=== PATIENT | male | born 1975 | race Caucasian/White ===

== ENCOUNTER → 2017-11-07 | Day surgery (SDC) | payer OTHER ==
[~2017-11-07] MED LIST: ACETAMINOPHEN 1000 MG/100 ML 100 ML IV ONE; ACETAMINOPHEN/HYDROcodone 325 MG/5 MG TAB ONE; KETOROLAC TROMETHAMINE 30 MG/ML (IVP) VIAL IV PUSH ONE; LACTATED RINGER'S 1000 ML INJ 1,000 ML ONE; MEPERIDINE HCL 50 MG/ML VIAL ONE; MIDAZOLAM HCL 2 MG/2 ML VIAL ONE; ONDANSETRON HCL 4 MG/2 ML VIAL IV PUSH ONE; PROPOFOL 200 MG/20 ML AMP IV ONE; ceFAZolin INJ 1,000 MG VIAL ONE
--- NOTE | 2017-11-07 10:29 | PD.PROCEDR ---
Procedure Note Procedure Operative report Preoperative diagnosis supraumbilical hernia Postoperative diagnosis same Procedure Open repair supraumbilical hernia with mesh Surgeon Diego Gardner MD [employer] Assembler Pamella ALEMAN Anesthesia General Indications for procedure This is a pleasant 42-year-old gentleman was at multiple previous hernia repairs. Developed a small supraumbilical hernia. Is symptomatic. He is desirous of operative repair. Intraoperative findings Small supraumbilical hernia with herniated preperitoneal fat. Estimated blood loss minimal. Description of procedure in detail Patient was identified as Art Rodriguez taken to the operating room and placed in a supine position. Sequential compression devices were placed on bilateral lower extremities. Following induction of adequate general anesthesia, patient' s abdomen was prepped and draped in usual sterile fashion with Betadine. A timeout procedure was performed. Following completion of timeout procedure everyone's satisfaction proposed elliptical incision including the previous infraumbilical scar was made with a marking pen. Local anesthetic was generously placed in and around the umbilicus and beneath the proposed incision site. The elliptical incision was carried out the scalpel and skin and scar was discarded. The umbilical skin was lifted off the herniated tissue in the supraumbilical position using combination of Metzenbaum scissors and blunt dissection. Herniated preperitoneal fat was reduced. The fascia was circumferentially cleared with electrocautery. Hernia defect was approximated with several interrupted inverted 0 Prolene sutures. Piece of mesh about 4 x 5 cm in size was placed in the onlay position and held in place with 6 separate 0 Ethibond sutures. Sutures were placed at the 3 and 9 o'clock position and 2:00 4:00 7:00 and 10:00 positions. This created a nice taut mesh to reinforce the primary repair. Irrigation ensued. There was no evidence of bleeding. The umbilicus was reformed with multiple interrupted 2-0 Vicryl sutures. Skin incisions were approximated for Monocryl subcuticular sutures. Dressings were applied with Mastisol half-inch brown Steri-Strips gauze and Tegaderm. An abdominal binder was placed. Patient tolerated the procedure without apparent complication. Sponge needle and instrument counts were correct at the end of the case. Diego Gardner MD Nov 07, 2017 10:29
--- NOTE | 2017-11-07 11:43 | PD.PROCEDR ---
Procedure Note Procedure This is an addendum to the operative report previously dictated today. This procedure was assisted by my nurse practitioner. The skill set of an HOME SERVICE CONSULTANT was medically necessary to provide increased safety and efficiency in the completion of the operative procedure. The instructor adjunct surgical technician was at the back table providing appropriate instrumentation while the nurse practitioner directly assisted me through the entirety of the procedure. End dictation Diego Gardner MD Nov 07, 2017 11:43
== END | disposition home or self-care (01) ==
LOC: ESDC 07:32
PROVIDERS: ATTEND Surgery Trauma Surgery
DX: K43.9 Ventral hernia without obstruction or gangrene (principal)
CPT/HCPCS: 00832; 49560; 49568; C1781; J0131; J0690; J1885; J2175; J2250; J2405; J3010; J7120